=== PATIENT | male | born 1985 | race Caucasian/White ===

== ENCOUNTER 2025-02-12 19:01 | Outpatient (CLI) | payer BC, SELFPAY ==
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
== END 2025-02-12 19:21 ==
LOC: DI 19:02
PROVIDERS: PCP Nurse Practitioner Family; Visit Provider Nurse Practitioner Family
DX: R07.81 Pleurodynia (principal)
CPT/HCPCS: 71046; 71100

== ENCOUNTER 2025-03-14 02:39 | Outpatient (CLI) | payer BC, SELFPAY ==
[2025-03-14 09:12] LABS: Abs Immature Grans 0.01 10^3/uL (0.0-0.06); HCT 38.7 % (40.0-50.0); HGB 13.4 g/dL (13.5-17.5); Immature Grans % 0.2 %; MCH 29.9 pg (27.0-33.0); MCHC 34.6 % (32.0-36.0); MCV 86 fL (80-95); MPV 10.3 fL (8.0-11.0); Platelet Count 188 10^3/uL (130-400); RBC 4.48 10^6/uL (4.36-5.78); RDW 11.9 % (11.8-14.1); RDW-SD 38.0 fL; WBC 5.55 10^3/uL (4.4-10.8)
[2025-03-14 10:54] LABS: ALT 30 U/L (16-63); AST 15 U/L (15-37); Albumin 4.2 g/dL (3.4-5.0); Alkaline Phosphatase 67 U/L (46-116); Anion Gap 9.6 mmol/L (3-11); BUN 28 mg/dL (7-18); Bilirubin, Total 0.5 mg/dL (0.2-1.0); CO2 28.4 mmol/L (21.0-32.0); Calcium 8.6 mg/dL (8.5-10.1); Calculated LDL 93 mg/dL (<100); Chloride 104 mmol/L (98-107); Cholesterol 140 mg/dL (<200); Estimated GFR 112.81 (mL/min/1.73m2); Glucose 95 mg/dL (74-106); HDL Cholesterol 38 mg/dL (>or=40); Potassium 4.5 mmol/L (3.5-5.1); Sodium 142 mmol/L (136-145); TSH (W/Ref FT4) 1.04 uIU/mL (0.36-3.74); Total Protein 7.2 g/dL (6.4-8.2); Triglyceride 48 mg/dL (<150)
== END 2025-03-14 02:40 | disposition home or self-care (01) ==
LOC: LBO 02:39
PROVIDERS: PCP Nurse Practitioner Family; Visit Provider Nurse Practitioner Family
DX: Z00.00 Encounter for general adult medical examination without abnormal findings (principal)
CPT/HCPCS: 36415; 80053; 80061; 84443; 85025

== ENCOUNTER 2025-05-31 22:11 | Outpatient (REF) | payer BC, SELFPAY ==
[2025-05-31 21:58] LABS: Abs Immature Grans 0.02 10^3/uL (0.0-0.06); HCT 37.8 % (40.0-50.0); HGB 13.0 g/dL (13.5-17.5); Immature Grans % 0.3 %; MCH 29.1 pg (27.0-33.0); MCHC 34.4 % (32.0-36.0); MCV 85 fL (80-95); MPV 10.7 fL (8.0-11.0); Platelet Count 217 10^3/uL (130-400); RBC 4.46 10^6/uL (4.36-5.78); RDW 12.2 % (11.8-14.1); RDW-SD 37.2 fL; WBC 7.23 10^3/uL (4.4-10.8)
[2025-06-03 12:28] LABS: Lyme Ab w Rflx to Lyme Confirm Negative (Negative)
[2025-06-04 13:15] LABS: B. miyamotoi PCR Negative (Negative); Babesia divergens/MO-1 Negative (Negative); Ehrlichia muris eauclairensis Negative (Negative)
== END 2025-05-31 22:12 | disposition home or self-care (01) ==
LOC: LBN 22:11
PROVIDERS: PCP Nurse Practitioner Family; Visit Provider Physician Assistant
DX: R53.83 Other fatigue (principal)
CPT/HCPCS: 87798; 85025; 86618